=== PATIENT | female | born 1955 | race Caucasian/White ===

== ENCOUNTER 2022-06-15 12:22 | Outpatient (CLI) | payer OTHER, SELFPAY ==
--- NOTE | ~2022-06-15 | XR_ITS ---
Clinical Indication: Aspiration of dental crown PA and lateral views of the chest: Comparison: None Findings: The lungs are clear, without evidence of focal consolidation or pleural effusion. Cardiome diastinal silhouette is within normal limits. Bones and soft tissues are unremarkable. Impression: Normal chest. No radiopaque foreign body seen. Reviewed, dictated and finalized at location [] [employer] Impression: Normal chest. No radiopaque foreign body seen.
--- NOTE | ~2022-06-15 | XR_ITS ---
Supine and upright views of the abdomen Clinical history: Ingested dental crown Findings: Bowel gas pattern is nonspecific. No evidence for obstruction or free air. There is a 9 mm metallic foreign body, roughly ovoid in shape, and the left lower quadrant. 2 cm sclerotic lesion not ed in the right sacrum. Impression: 9 mm metallic foreign body left lower quadrant, compatible with ingested dental crown. 2 cm sclerotic lesion of the right sacrum. This is indeterminate. No other osseous lesions are identi fied in the [id number]. Consider bone scan to evaluate for uptake, and/or MR to better evaluate ma rrow signal characteristics, for possible bone island. Reviewed, dictated and finalized at location [] [employer]ISTRATION SPECIALIST Impression: 9 mm metallic foreign body left lower quadrant, compatible with ingested dental crown. 2 cm sclerotic lesion of the right sacrum. This is indeterminate. No other osse ous lesions are identified in the [id number]. Consider bone scan to evaluate for uptake, and/or MR to better evaluate marrow signal characteristics, for po ssible bone island.
== END 2022-06-15 12:23 | disposition home or self-care (01) ==
LOC: ANHIMG 12:49
PROVIDERS: PCP Family Medicine
DX: T18.0XXA Foreign body in mouth, initial encounter (principal)
CPT/HCPCS: 71046; 74018